=== PATIENT | male | born 1955 | race Caucasian/White ===

== ENCOUNTER → 2017-08-22 | Outpatient (CLI) | payer BC ==
--- NOTE | 2017-08-22 09:26 | CT ---
EXAMINATION TYPE: CT abdomen wo/w con DATE OF EXAM: 08/22/2017 COMPARISON: NONE HISTORY: 61-year-old male flank pain, follow up renal cyst TECHNIQUE: Contiguous axial scanning of the abdomen before and after administration of 100 ml Isovue 300 IV contrast. Delayed images through the kidneys and coronal/sagittal reconstructions performed. CT DLP: 2086.4 mGycm Automated exposure control for dose reduction was used. FINDINGS: Heart normal size without pericardial effusion. Lung bases clear without pleural effusion. No focal liver lesion or biliary ductal dilatation. Portal venous system is patent. No biliary ductal dilatation. Gallbladder, adrenal glands, spleen with tiny inferior splenules, and pancreas appear within normal l imits. A couple small cortical cysts in the left kidney measuring up to 1.1 cm, too small for accurate CT ch aracterization. Inferior partially exophytic cyst lower pole left kidney measures 5.2 cm. There is a large cystic space within the central right kidney measuring up to at least 8.7 x 8.2 cm. There is some cortical thinning and the cystic space appears to extend to include calyceal blunting s uggesting underlying hydronephrosis. Concomitant cysts are likely present at the lower pole measuring up to 8.4 cm, coronal image 73 and axial image 54. There is a nonobstructive 7 mm right lower pole r enal calculus. No excretion is seen from the right kidney on the delayed kidney images as is seen on the left. No dilated ureter is identified. No dilated small bowel, free fluid, or free air. No mesenteric or retroperitoneal lymphadenopathy. Sigmoid diverticulosis partially visualized at the pelvis is not included. No pericolonic inflammator y change seen along the visualized portions. Mild overall stool burden. Bones: Degenerative bridging ankylosis right SI joint. Degenerative changes throughout the visualized spine. No osseous destructive process. IMPRESSION: 1. LARGE CYSTIC SPACE MEASURING UP TO 8.7 CM IN THE CENTRAL RIGHT KIDNEY. THIS EXTENDS TO INCLUDE KHOA YCEAL BLUNTING AND THERE IS ALSO DELAYED EXCRETION OF CONTRAST FROM THE RIGHT KIDNEY. BOTH OF THESE F INDINGS SUGGEST SEVERE RIGHT-SIDED HYDRONEPHROSIS. THERE IS NO URETERAL DILATATION. CORRELATE FOR UPJ OBSTRUCTION. 2. PARTIALLY EXOPHYTIC 8.4 CM CYST LOWER POLE RIGHT KIDNEY AND A NONOBSTRUCTIVE 7 MM RIGHT LOWER POLE RENAL CALCULUS. 3. PARTIALLY VISUALIZED SIGMOID DIVERTICULOSIS.
== END | disposition home or self-care (01) ==
LOC: RADCTMAIN 07:01
PROVIDERS: ATTEND Urology
DX: N20.0 Calculus of kidney (principal); N28.1 Cyst of kidney, acquired; K57.30 Diverticulosis of large intestine without perforation or abscess without bleeding
CPT/HCPCS: 82565; 84520; 74170; 36415; Q9967

== ENCOUNTER 2017-10-18 08:00 | Day surgery (SDC) | payer BC ==
[2017-10-18 08:27] VITALS: RESP 20; TEMP 97.4
[2017-10-18] MEDS ORDERED: ALPRAZolam 0.5 MG TAB PO STA (08:50)
[2017-10-18 09:31] VITALS: BP 190/108; PULSE 70
== END 2017-10-18 10:00 | disposition home or self-care (01) ==
LOC: RADPROMAIN 08:00
PROVIDERS: ATTEND Urology
DX: Z53.9 Procedure and treatment not carried out, unspecified reason (principal); N28.1 Cyst of kidney, acquired

== ENCOUNTER 2017-11-01 09:02 | Day surgery (SDC) | payer BC ==
[2017-11-01 09:14] VITALS: RESP 20; TEMP 97.7
[2017-11-01 11:44] VITALS: BP 143/90; PULSE 70
--- NOTE | 2017-11-01 13:38 | CT ---
EXAMINATION TYPE: CT guided aspiration DATE OF EXAM: 11/01/2017 HISTORY: Hydronephrosis, renal cyst COMPARISON: CT abdomen 08/22/2017 DLP 2086.4 mGycentimeters PROCEDURE: Following discussion with referring clinician, informed consent the patient was undertaken. Maximal barrier technique was utilized. The skin over suitable path to the lower pole renal cyst on the right was localized with CT and the overlying skin prepped and draped. Lidocaine was used for local anesthesia. A skin alisha made with a scalpel. Access was gained using CT guidance with a 22-gauge needle, serous fluid returned in the hub of the needle. A 0.018 inch wire was advanced and the access site was upsized, the wire was upsized and subsequently an 6.5- [place] drain was deployed within the cyst cavity and fixed in place. Aspiration was performed, approximately 120 cc serous fluid were removed. Postprocedure scanning shows no residual cyst. Catheter was removed. Patient suffered a transient vasovagal response which was treated with intravenous fluid. Patient responded well in short order remained in stable condition prior to discharge. The patient remained in stable condition. Patient was discharged. IMPRESSION: STATUS POST CT GUIDED RENAL CYST DRAINAGE, MICROBIOLOGY ANALYSIS IS PENDING. THIS PROCEDURE WAS PERFORMED BY THE UNDERSIGNED. ELIZABETH
== END 2017-11-01 11:40 | disposition home or self-care (01) ==
LOC: RADPROMAIN 09:02
PROVIDERS: ATTEND Urology
DX: N28.1 Cyst of kidney, acquired (principal); Z88.8 Allergy status to other drugs, medicaments and biological substances
CPT/HCPCS: 50390; 77012

== ENCOUNTER → 2017-12-15 | Outpatient (CLI) | payer BC ==
--- NOTE | 2017-12-15 09:50 | US ---
EXAMINATION TYPE: US kidneys/renal and bladder DATE OF EXAM: 12/15/2017 COMPARISON: NONE CLINICAL HISTORY: R93.4 History of Hydronephrosis. Patient states having a right kidney cyst drained on Nov 01. Patient states no pain. EXAM MEASUREMENTS: Right Kidney: 12.0 x 5.3 x 7.4 cm Left Kidney: 11.3 x 4.9 x 5.6 cm Right Kidney: Central large cyst vs hydronephrosis = 11.4 x 8.6 cm Left Kidney: Cystic areas seen. 1- lower pole exophytic complex cyst = 1.1 x 1.1 cm. 2- lower pole = 3.9 x 4.3 x 4.6 cm. Echogenic focus in cortical region - 0.3 x 0.6 cm, may be a nonobstructing hair al stone. Bladder: distended, wnl as visualized Bilateral Jets not seen IMPRESSION: 1. There is a large hydronephrosis of the right kidney. This would be difficult to separate from a co mplex cyst 2. Complex cysts left kidney.
== END | disposition home or self-care (01) ==
LOC: RADUSWWP 08:21
PROVIDERS: ATTEND Urology
DX: N13.30 Unspecified hydronephrosis (principal); N28.1 Cyst of kidney, acquired; Z88.8 Allergy status to other drugs, medicaments and biological substances
CPT/HCPCS: 76770